=== PATIENT | female | born 1940 | race Caucasian/White ===

== ENCOUNTER 2019-02-09 20:08 | Inpatient (IN) | payer MEDICARE, OTHER ==
[~2019-02-09] VITALS: Ht 157.5 cm; Wt 79.8 kg
[2019-02-09] MEDS ORDERED: METO25ER PO (20:48)
[2019-02-10 00:01] LABS: International Normalized Ratio 0.97; Prothrombin Time Results 10.3 Sec (9.7-11.5)
[2019-02-10] MEDS ORDERED: ALEN70 PO (00:41)
--- NOTE | 2019-02-10 06:37 | NUR ---
PT ADMITTED TO ICU-16 PCU STATUS FOR SYNCOPE. PT WAS TRANSFERED FROM [facility], HER FABIOLA IS AT BEDSIDE W PT. PT HAD LOOP RECORDER PLACED LAST MONTH AFTER SEVERAL EPISODES OF SYNCOPE. PT HAS BEEN ALERT & ORENTED & COOPERATIVE W CARE, THOUGH ADMITS TO ANXIETY. HAS DENIED ANY DISCOMFORT OR DISTRESS. VSS, MONITOR HAS SHOWN NSR W OCCAS PVC. PT WAS ASSISTED TO TOILET TO VOID THIS MORNING. PT HAS HAD NO DIZZINESS WHEN UP. PT HAS BEEN REQUESTED TO CALL FOR ASSIST BEFORE GETTING OOB. PT HAS HAD SMALL SIPS H20, BUT NPO AT THIS TIME. PT IS ANXIOUS TO GO HOME TODAY. CALL LIGHT IS IN REACH.
--- NOTE | 2019-02-10 09:00 | NUR ---
0710 ASSUMED CARE OF PT. PT IS ALERT AND ORIENTED. ON A GROUCHY MOOD. PT STATING SHE HAS NOT SLEPT THROUGH THE NIGHT. REMINDED PT SHE WILL BE NPO UNTIL DR. CHUN SEES HER. 0857-DR. CHUN AT BEDSIDE. UPDATED HER OF PT'S STATUS.
--- NOTE | 2019-02-10 09:40 | NUR ---
DEVICE INTERROGATION DONE PER DR. CHUN ORDER. PATIENT IS FROM [place] AND WAS TRANSFERRED FOR SYNCOPAL EPISODE WITH POSSIBLE PACEMAKER IMPLANT. SYMPTOMATIC EPISODE January "FAINTED". RHYTHM IS SINUS RATE 60-75 BPM. PAUSE EPISODES: 126. PER [facility] REP SAEID CABRALES AND CONFIRMED BY TECH SUPPORT ALL APPEAR TO BE LOSS OF CONTACT FROM DEVICE RECORDING A FALSE POSITIVE PAUSE EVENT. INFORMATION GIVEN TO DR. CHUN AND CHUCHO KILGORE RN.
--- NOTE | 2019-02-10 10:17 | NUR ---
Pt c/o she has back pain and finally found a postion that was comfortable and doesn't want to move. Will call if she changes her mind.
--- NOTE | 2019-02-10 12:29 | NUR ---
DR. CHUN AT BEDSIDE TALKING TO PT AT THIS TIME.
--- NOTE | 2019-02-10 12:30 | NUR ---
CAROTID DUPLEX AND ECHO WAS DONE. PT IS SITTING ON THE CHAIR AT THIS TIME. HEATING PAD WAS STARTED FOR SHOULDER PAIN. INTERROGATION OF THE LOOP RECORDER WAS DONE WELL.
--- NOTE | 2019-02-10 13:00 | NUR ---
PT IS FOR STRESS TEST. NUCLEAR MED PERSONNEL CAME BY AND EXPLAINED THE PROCEDURE TO THE PATIENT.
--- NOTE | 2019-02-10 16:45 | NUR ---
1600-PT WAS TAKEN TO NUCLEAR MED AT THIS TIME. 1645-PT IS BACK TO HER ROOM. CT SCAN OF HEAD AND NUCLEAR MED STUDY IS DONE.
--- NOTE | 2019-02-10 17:47 | NUR ---
Per admit trigger, I met with Елена to offer information regarding an Advanced Directive. I gently explained this document's benefits and purpose. She politely decline need, but took the information. Advised I would remain available.
--- NOTE | 2019-02-10 21:39 | NUR ---
ASSUMED CARE OF PT. REPORT RCV'D FROM ALDO KILGORE RN. PT ALERT AND ORIENTED SITTING IN BED EATING HER DINNER. PT DENIES DIZZINESS AT THIS TIME. PT REMINDED TO CALL FOR ASSISTANCE PRIOR TO AMBULATING. PT DENIES NEEDS AT THIS TIME. PT TO BE NPO AFTER MIDNIGHT AND NO CAFFEINE UNTIL STRESS TEST. SEE FULL SHIFT ASSESSMENT.
[2019-02-11 04:40] LABS: BASOPHILS ABSOLUTE AUTO 0.09 K/mm3 (0.00-0.23); BASOPHILS PERCENT AUTO 1 % (0-2); EOSINOPHILS ABSOLUTE AUTO 0.28 K/mm3 (0.00-0.68); EOSINOPHILS PERCENT AUTO 3 % (0-6); Hematocrit 36.7 % (33.0-51.0); Hemoglobin 11.9 g/dL (11.5-16.0); IMMATURE GRAN ABSOLUTE AUTO 0.04 K/mm3 (0.00-0.10); IMMATURE GRAN PERCENT AUTO 1 % (0-1); LYMPHOCYTES ABSOLUTE AUTO 2.19 K/mm3 (0.84-5.20); LYMPHOCYTES PERCENT AUTO 26 % (21-46); MONOCYTES ABSOLUTE AUTO 1.02 K/mm3 (0.16-1.47); MONOCYTES PERCENT AUTO 12 % (4-13); Mean Corpuscular HGB 27.3 pg (26.0-34.0); Mean Corpuscular HGB Conc 32.4 g/dL (31.5-36.5); Mean Corpuscular Volume 84 fL (80-100); Mean Platelet Volume 9.5 fL (9.1-12.4); NEUTROPHILS ABSOLUTE AUTO 4.86 K/mm3 (1.96-9.15); NEUTROPHILS PERCENT AUTO 57 % (41-73); Platelet Count 323 K/mm3 (150-400); RDW Standard Deviation 46.1 fL (35.1-46.3); Red Blood Cell Count 4.36 M/mm3 (3.80-5.20); White Blood Cell Count 8.48 K/mm3 (4.00-11.30)
[2019-02-11 05:01] LABS: Anion Gap 6 mmol/L (6-16); Blood Urea Nitrogen 22 mg/dL (8-24); Bun/Creatinine Ratio 25.7 (12.0-20.0); CHOL/HDL RATIO 3.2; CO2, Blood 25 mmol/L (21-32); Calcium, Blood 8.9 mg/dL (8.5-10.1); Chloride, Blood 109 mmol/L (98-108); Cholesterol 220 mg/dL (50-200); Creatinine, Blood 0.86 mg/dL (0.40-1.00); Glomerular Filtration Rate >60 (60-); Glucose, Blood 89 mg/dL (70-99); HDL Cholesterol 69 mg/dL (>39); LDL/HDL RATIO 1.9; Low Density Lipoprotein Chol 134 mg/dL (0-110); Potassium, Blood 3.9 mmol/L (3.5-5.5); Sodium, Blood 140 mmol/L (136-145); Triglycerides 83 mg/dL (30-160); Very Low Density Lipoprot Chol 16 mg/dL (6-32)
--- NOTE | 2019-02-11 06:43 | NUR ---
SHIFT SUMMARY NO ACUTE CHANGES OVERNIGHT. PT'S VSS WITH EXCEPTION TO PERIODS OF HTN TREATED WITH HYDRALAZINE. DR. CHUN IN THIS MORNING TO SPEAK WITH PT AND ORDER ADDITIONAL LABS WITH POSSIBILITY OF INCREASING METOPROLOL DOSE TO BETTER MANAGE HTN. WILL REPORT TO DAYSHIFT NURSE.
--- NOTE | 2019-02-11 08:44 | NUR ---
BEGINNING OF SHIFT Assumed care of pt at 0700, with Alfred LYLES. Report recieved from Watson LYLES. Pt on room air. Sinus rhythm per monitor with no recorded events. Per Wilian from [facility], pt will be having injection at 1230 and scan at 1400[address] Dr Hartley in room at this time, evaluating loop recorder.
--- NOTE | 2019-02-11 10:06 | NUR ---
BATHROOM Pt ambulated to toilet and then ambulated to sink to wash hands. Pt reported feeling lightheaded and dizzy when she returned to bed. Pt stated she also felt nauseous. HR 105-115 while ambulating, sinus tachycardia. BP 105/52 upon returning back to bed.
--- NOTE | 2019-02-11 10:32 | NUR ---
PT TO DENTAL OFFICE COORDINATOR Pt departed to produce laborer. Departed with Irene LYLES.
--- NOTE | 2019-02-11 11:05 | NUR ---
SEE SEDATION/MEDICAL RECORDS SHEET- PT TOLERATES PROCEDURE WELL. PT LOOP RECORDER REMOVED AND NEW LOOP RECORDER INPLANTED. MICHAEL. FRANCISCO JAVIER. PT HAS A FOLLOW UP REMOTE APPT MARCH 16, 2019 @ 08:00 AM. APPT CARD PROVIDED TO PATIENT.
--- NOTE | 2019-02-11 12:46 | NUR ---
UPDATE Pt back in room from general production laborer after explantation of previous loop recorder and insertion of new loop recorder. Site is covered with steri-strips, nonadherent dressing, and transparent dressing. Pt received lexiscan injection prior to arrival back to room. Per Irene LYLES. Pt did not receive any sedation for this procedure.
--- NOTE | 2019-02-11 15:44 | NUR ---
UPDATE IN PLAN OF CARE This RN notified Dr Nichols that lexiscan had resulted. Provider reviewed results and stated that pt is clear to go home from cardiology standpoint. This RN placed call to hospitalist, Dr Case, to update. Plans for discharge today.
--- NOTE | 2019-02-11 18:12 | NUR ---
DISCHARGE Pt discharged from ICU 16 at 1650. Pt departed with her daughter. Pt escorted to patient entrance via wheelchair by this RN. Pt verbalized understanding of follow up appointment date and time and wound care instructions. Loop recorder site remained unchanged from initial assessment.
[2019-02-16 12:06] LABS: METANEPHRINE, PL 44 pg/mL (0-62); NORMETANEPHRINE, PL 111 pg/mL (0-145)
== END 2019-02-11 16:59 | disposition home or self-care (01) | DRG 260 ==
LOC: ER 20:08 → ICUW 23:24
PROVIDERS: Emergency Medicine; Internal Medicine Cardiovascular Disease; ADMIT Internal Medicine
PROC: 0JH632Z Insertion of Monitoring Device into Chest Subcutaneous Tissue and Fascia, Percutaneous Approach (ICD-10-PCS; principal; 2019-02-11)
PROC: 0JPT32Z Removal of Monitoring Device from Trunk Subcutaneous Tissue and Fascia, Percutaneous Approach (ICD-10-PCS; 2019-02-11)
DX: R55 Syncope and collapse (principal); I50.31 Acute diastolic (congestive) heart failure; T82.897A Other specified complication of cardiac prosthetic devices, implants and grafts, initial encounter; I47.1 Supraventricular tachycardia; I35.0 Nonrheumatic aortic (valve) stenosis; M81.0 Age-related osteoporosis without current pathological fracture; H35.30 Unspecified macular degeneration; E66.9 Obesity, unspecified; Z68.31 Body mass index [BMI] 31.0-31.9, adult; I11.0 Hypertensive heart disease with heart failure; E78.5 Hyperlipidemia, unspecified; R73.01 Impaired fasting glucose; M25.511 Pain in right shoulder
CPT/HCPCS: 33285; 33286; 36415; 70450; 78452; 80048; 80061; 82384; 83735; 83835; 84443; 84484; 85025; 85610; 85730; 93005; 93010; 93017; 93291; 93306; 93880; 99285-25; A9270; A9500; C1764; J0360; J1940; J2405; J2785; J7030